=== PATIENT | male | born 1995 ===

== ENCOUNTER 2021-08-13 12:32 | Emergency (ER) | payer OTHER ==
[2021-08-13] MEDS ORDERED: Bupivacaine 0.5% 10 ML VIAL ONE (14:11)
[2021-08-13] MEDS ORDERED: Lidocaine 1% PF 5 ML VIAL ONE (14:11)
[2021-08-13] MEDS ORDERED: Rabies Vaccine Human 2.5 UNITS VIAL IM ONE (16:30)
[2021-08-13] MEDS ORDERED: Boostrix 0.5 ML (Tdap) VIAL ONE (17:24)
== END 2021-08-13 19:06 | disposition home or self-care (01) ==
LOC: ERS 12:32
DX: S62.636A Displaced fracture of distal phalanx of right little finger, initial encounter for closed fracture (principal); S61.212A Laceration without foreign body of right middle finger without damage to nail, initial encounter; S61.214A Laceration without foreign body of right ring finger without damage to nail, initial encounter; Z23 Encounter for immunization; F17.290 Nicotine dependence, other tobacco product, uncomplicated; W54.0XXA Bitten by dog, initial encounter
CPT/HCPCS: 12001; 90376; 90471; 90472; 90675; 90715; 96372; J3490